=== PATIENT | male | born 1950 | race Two or more races ===

== ENCOUNTER 2017-10-24 17:57 | Observation (INO) | payer MEDICARE ==
[~2017-10-24] VITALS: Ht 172.7 cm; Wt 67.1 kg
[2017-10-24 18:42] VITALS: BP 140/74
[2017-10-24] MEDS ORDERED: LOVASTATIN20 MG PO (19:40)
[2017-10-24] MEDS ORDERED: TRADJENTA5 MG PO (19:40)
[2017-10-24] MEDS ORDERED: LISINOPRIL10 MG PO (19:40)
[2017-10-24] MEDS ORDERED: METFORMIN HCL500 MG PO (19:40)
[2017-10-24 19:59] VITALS: BP 122/65
[2017-10-24] MEDS: PRAVASTATIN 20 MG TAB PO SCH (21:33)
[2017-10-24 21:55] VITALS: BP 122/65
[2017-10-24 22:46] LABS: CREATINE KINASE 189 IU/L (30-200)
[2017-10-25] VITALS (7 sets, daily range): BP systolic 134–156; BP diastolic 74–82
[2017-10-25 08:31] LABS: CREATINE KINASE 169 IU/L (30-200)
[2017-10-25] MEDS: NON-FORMULARY MEDICATION (Linagliptin (Tradjenta) 5 MG) PO SCH (09:00)
[2017-10-25] MEDS ORDERED: NON-FORMULARY MEDICATION (Linagliptin (Tradjenta) 5 MG) PO SCH (09:00)
[2017-10-25] MEDS: METFORMIN HCL 500 MG TAB PO SCH (09:00)
[2017-10-25] MEDS: LISINOPRIL 20 MG TAB PO SCH (09:25)
[2017-10-25] MEDS ORDERED: DEXTROSE 50% SYRINGE 50 ML IV PRN (10:30)
[2017-10-25 10:52] LABS: CHOL/HDL RATIO 3.4 (3.9-4.7)
[2017-10-25] MEDS: INSULIN REGULAR, HUMAN 100 UNIT/1 ML 3ML VIAL SQ SCH ×3 (11:30→20:28)
[2017-10-25] MEDS: ASPIRIN 81 MG ENTERIC COATED PO SCH (11:48)
--- NOTE | 2017-10-25 14:00 | Diagnostic Imaging Report ---
EXAMINATION: CHEST 2 VIEWS 10/25/2017 10:40 AM COMPARISON: None INDICATION: Chest pain DISCUSSION: LINES: None. LUNGS: The lung volumes are low. No pneumonia or pulmonary edema. PLEURA: No pleural effusion or pneumothorax. HEART AND MEDIASTINUM: The cardiomediastinal silhouette is unremarkable. BONES AND SOFT TISSUES: No acute osseous lesion. Multilevel degenerative changes of the thoracic spine IMPRESSION: No acute cardiopulmonary disease. Herbie Haynes MD Signed by: Dr. Herbie Haynes M.D. on 10/25/2017 1:57 PM
--- NOTE | 2017-10-25 14:36 | Consultation ---
DATE OF CONSULTATION: October 25, 2017 CARDIOLOGY CONSULTATION REASON FOR CONSULTATION: Chest pain. HISTORY OF PRESENT ILLNESS: This is a 67-year-old man with a history of hypertension, hyperlipidemia and diabetes mellitus, who presented with complaints of chest pain. The patient reports he was in his usual state of health until evening when he developed burning chest pain. There was no radiation or associated with shortness of breath, nausea, or diaphoresis. He is unable to fully characterize the severity of the pain, but states it was mild that lasted approximately half an hour before it resolved. The pain recurred Thursday and Thursday with the last episode lasting again half an hour. Due to this, he presented to the ER for further evaluation. He denies any shortness of breath, palpitations, edema, orthopnea, or PND. REVIEW OF SYSTEMS: Negative except as per HPI. PAST MEDICAL HISTORY: Hypertension, hyperlipidemia, diabetes mellitus. PAST SURGICAL HISTORY: Cataract surgery. ALLERGIES: NO KNOWN DRUG ALLERGIES. MEDICATIONS: Please see medication list. SOCIAL HISTORY: He denies tobacco, alcohol or illicit drugs. FAMILY HISTORY: Denies family history of heart disease. PHYSICAL EXAMINATION VITALS: Temperature 96.4 degrees, pulse 81, respiratory rate 16, blood pressure 148/82, oxygen saturation 95% on room air. GENERAL: A well-developed, well-nourished man in no acute distress. HEENT: Normocephalic and atraumatic. Pupils equal. No scleral icterus. NECK: Supple. No thyromegaly or cervical lymphadenopathy. No carotid bruits. LUNGS: Clear to auscultation bilaterally. No wheezes or crackles. CARDIOVASCULAR: Normal rate and regular rhythm. No murmur. Normal S1 and S2. ABDOMEN: Soft and nontender. EXTREMITIES: No edema. NEURO: Nonfocal exam. Troponin less than 0.001. Labs are pending. IMPRESSION 1. Chest pain. 2. Diabetes mellitus. 3. Hypertension. 4. Hyperlipidemia. RECOMMENDATIONS: Trend cardiac enzymes to rule out myocardial infarction. Obtain echocardiogram, EKG and chest x-ray. Get fasting lipid panel. Given his risk factors, ischemic evaluation is warranted. Will proceed with treadmill nuclear stress test in the morning. Thank you for this consult. Will continue to follow. Job#: [id number] MD
[2017-10-25 17:36] LABS: CREATINE KINASE 153 IU/L (30-200)
[2017-10-25] MEDS: CARVEDILOL 3.125 MG TAB PO SCH (18:25)
[2017-10-25] MEDS: PRAVASTATIN 20 MG TAB PO SCH (20:28)
[2017-10-26] VITALS: BP 132/71
[2017-10-26 04:00] VITALS: BP 139/77
[2017-10-26 06:41] VITALS: BP 139/77
[2017-10-26 06:46] LABS: BASOPHILS % 0.5 % (0.0-1.0); EOSINOPHILS # (AUTO) 0.5 (0.0-0.4); EOSINOPHILS % 5.5 % (0.0-6.0); HEMATOCRIT 40.1 % (38.2-49.6); HEMOGLOBIN 13.4 g/dL (14.0-18.0); LYMPHOCYTES # (AUTO) 2.5 (1.0-3.2); LYMPHOCYTES % 30.2 % (18.0-39.1); MEAN CORPUSCULAR HEMOGLOBIN 27.9 pg (28-32); MEAN CORPUSCULAR HGB CONC 33.4 g/dL (31-35); MEAN CORPUSCULAR VOLUME 83.4 fL (81-99); MONOCYTES % 12.6 % (4.4-11.3); NEUTROPHILS # (AUTO) 4.1 (2.1-6.9); PLATELET COUNT 182 x10e3/uL (140-360); RED BLOOD COUNT 4.81 x10e6/uL (4.3-5.7); RED CELL DISTRIBUTION WIDTH 13.3 % (11.7-14.4)
[2017-10-26 07:03] LABS: BLOOD UREA NITROGEN 19 mg/dL (7-26); BUN/CREATININE RATIO 23 (6-25); CALCIUM 9.8 mg/dL (8.4-10.2); CARBON DIOXIDE 26 mmol/L (22-29); CHLORIDE 106 mmol/L (98-107); CREATININE, SERUM 0.83 mg/dL (0.72-1.25); EST GLOMERULAR FILTRATION RATE > 60 ML/MIN (60-); GLUCOSE 229 mg/dL (74-118); SODIUM 137 mmol/L (136-145)
[2017-10-26] MEDS: INSULIN REGULAR, HUMAN 100 UNIT/1 ML 3ML VIAL SQ SCH ×3 (07:30→17:06)
[2017-10-26 07:46] VITALS: BP 132/70
[2017-10-26] MEDS: CARVEDILOL 3.125 MG TAB PO SCH ×3 (08:00→16:51)
[2017-10-26] MEDS: NON-FORMULARY MEDICATION (Linagliptin (Tradjenta) 5 MG) PO SCH (09:00)
[2017-10-26] MEDS ORDERED: REGADENOSON 0.4 MG/5 ML SYR IV ONE (10:16)
[2017-10-26 11:37] VITALS: BP 134/80
[2017-10-26] MEDS: ASPIRIN 81 MG ENTERIC COATED PO SCH (12:00)
[2017-10-26] MEDS: LISINOPRIL 20 MG TAB PO SCH (12:00)
[2017-10-26] MEDS: METFORMIN HCL 500 MG TAB PO SCH (12:00)
[2017-10-26 15:35] VITALS: BP 139/87
--- NOTE | 2017-10-26 20:15 | Cardiology Report ---
DATE OF STUDY: October 26, 2017 PROCEDURE TITLE: Stress single isotope SPECT imaging with exercise stress and gated SPECT imaging. INDICATIONS: Chest pain. PROCEDURE: The patient performed treadmill exercise using a Jamir protocol, exercising for 6 minutes to stage 2 and completing estimated work load of 7 metabolic equivalents (METs). The test was terminated due to fatigue. Heart rate was 97 beats per minute at rest and increased to 133 beats per minute at peak exercise, which was 88% of maximum predicted heart rate. The rest blood pressure was 111/78 mmHg and increased to 157/75 mmHg, which is a normal response. The patient did not develop any symptoms other than fatigue during the procedure. The resting electrocardiogram demonstrated normal sinus rhythm. There were no ST segment changes consistent with myocardial ischemia. Myocardial perfusion imaging was performed at rest following the injection of 10.8 millicuries of tetrofosmin and at peak exercise the patient was injected with 27.2 millicuries of tetrofosmin and exercise was continued for 1 minute and gated post tomographic imaging was performed. FINDINGS: Overall quality of the study is fair. Left ventricular cavity is noted to be normal size on the rest and stress studies. SPECT images demonstrate homogenous tracer distribution throughout the myocardium. Gated SPECT imaging reveals normal myocardial thickening and wall motion. The left ventricular ejection fraction was calculated to be 57%. IMPRESSION: Clinical hemodynamic and ECG exercise stress test. Myocardial perfusion imaging is normal. Overall left ventricular systolic function was normal without regional wall motion abnormalities. Job#: [id number] GH cc:EFREN MADERA MD
--- NOTE | 2017-10-26 21:24 | Progress Note ---
DATE: October 26, 2017 CARDIOLOGY PROGRESS NOTE SUBJECTIVE: The patient denies chest pain or shortness of breath. He was seen for exercise stress test. OBJECTIVE VITAL SIGNS: Temperature 97.8 degrees, pulse 94, respiratory rate 20, blood pressure 134/80, oxygen saturation 99% on room air. GENERAL: Awake, alert and in no acute distress. LUNGS: Clear to auscultation bilaterally. No wheezes or crackles. CARDIOVASCULAR: Normal rate and regular rhythm. No murmur. Normal S1 and S2. ABDOMEN: Soft and nontender. EXTREMITIES: No edema. CARDIAC MEDICATIONS: 1. Carvedilol 3.125 mg p.o. b.i.d. 2. Aspirin 81 mg p.o. daily. 3. Lisinopril 20 mg p.o. daily. LABORATORY DATA: WBC 8.11, hemoglobin 13.4, hematocrit 40.1, platelets 182, sodium 137, potassium 5, chloride 106, CO2 of 26, BUN 19, creatinine 0.83, hemoglobin A1c 8.2. Cholesterol 94, triglycerides 87, LDL 49, HDL 28. TELEMETRY: Normal sinus rhythm. IMPRESSION 1. Chest pain. 2. Diabetes mellitus, uncontrolled. 3. Hypertension. 4. Hyperlipidemia. RECOMMENDATIONS: The patient ruled out for myocardial infarction with serial cardiac biomarkers. Nuclear stress test was without evidence of ischemia. Continue current cardiac medications. Discussed heart healthy diet and exercise. The patient may be discharged home to follow up in the office in 2 weeks. Thank you for this consult. We will continue to follow. Job#: [id number]
== END 2017-10-26 20:00 | disposition home or self-care (01) ==
LOC: INTOOBSV 17:57 → IMCU 17:57
PROVIDERS: ADMIT Family Medicine; ATTEND Family Medicine
DX: R07.9 Chest pain, unspecified (principal); E11.65 Type 2 diabetes mellitus with hyperglycemia; E78.5 Hyperlipidemia, unspecified; I10 Essential (primary) hypertension
CPT/HCPCS: 36415 ×3; 71046; 78452; 80048; 80061; 82550 ×2; 82553 ×2; 82948 ×3; 83036; 84484 ×2; 85025; 93005; 93017; 93306; A9502; G0378 ×3

== ENCOUNTER → 2021-11-26 | Outpatient (CLI) | payer OTHER ==
[~2021-11-26] MED LIST: LISINOPRIL10 MG PO; LOVASTATIN20 MG PO; METFORMIN HCL500 MG PO; TRADJENTA5 MG PO
== END ==
LOC: CARD 10:49
PROVIDERS: ATTEND Family Medicine
DX: R47.81 Slurred speech (principal); R26.89 Other abnormalities of gait and mobility
CPT/HCPCS: 70551; 93880